=== PATIENT | female | born 1950 | race Caucasian/White ===

== ENCOUNTER 2020-07-19 12:19 | Inpatient (IN) | payer MEDICARE, OTHER ==
[~2020-07-19] VITALS: Ht 157.5 cm; Wt 152.4 kg
[2020-07-19] MEDS ORDERED: ONDANSETRON HCL INJ 2MG/ML 2ML 2 MG/ML VIAL IV ONE (12:59)
[2020-07-19] MEDS ORDERED: MORPHINE SULFATE 2 MG/ML SYR 1ML IV ONE (12:59)
[2020-07-19] MEDS ORDERED: VANCOMYCIN 1GM/NS 250 ML 250 ML IV ONE (13:15)
[2020-07-19] MEDS ORDERED: PIPER-TAZ 3.375 GM 50 ML IV ONE (13:15)
[2020-07-19 13:18] LABS: BASOPHILS # (AUTO) 0.1 (0.0-0.1); BASOPHILS % 0.9 % (0.0-1.0); EOSINOPHILS # (AUTO) 0.3 (0.0-0.4); HEMATOCRIT 36.2 % (34.2-44.1); HEMOGLOBIN 11.6 g/dL (12.0-16.0); LYMPHOCYTES # (AUTO) 1.5 (1.0-3.2); LYMPHOCYTES % 21.3 % (18.0-39.1); MEAN CORPUSCULAR HEMOGLOBIN 32.3 pg (28-32); MEAN CORPUSCULAR VOLUME 100.8 fL (81-99); MONOCYTES # (AUTO) 0.5 (0.2-0.8); MONOCYTES % 7.4 % (4.4-11.3); NEUTROPHILS # (AUTO) 4.7 (2.1-6.9); NEUTROPHILS % 66.3 % (38.7-80.0); PLATELET COUNT 213 x10e3/uL (140-360); RED BLOOD COUNT 3.59 x10e6/uL (3.6-5.1); RED CELL DISTRIBUTION WIDTH 15.4 % (11.7-14.4)
[2020-07-19 13:28] LABS: INR 1.02; PARTIAL THROMBOPLASTIN TIME 26.3 seconds (23.8-35.5); PROTHROMBIN TIME 13.9 seconds (11.9-14.5)
[2020-07-19 13:37] LABS: ALBUMIN 2.8 g/dL (3.5-5.0); ALBUMIN/GLOBULIN RATIO 0.7 (0.8-2.0); ANION GAP 13.3 mmol/L (8-16); CALCIUM 8.9 mg/dL (8.4-10.2); CREATININE, SERUM 1.19 mg/dL (0.57-1.11); POTASSIUM 3.3 mmol/L (3.5-5.1)
[2020-07-19 13:44] LABS: CREATINE KINASE MB 0.5 ng/mL (0-5.0)
[2020-07-19] MEDS ORDERED: MORPHINE SULFATE 2 MG/ML SYR 1ML IV PRN (13:45)
[2020-07-19] MEDS ORDERED: SODIUM CHLORIDE 0.9% 1000ML 1,000 ML IV SCH (13:45)
[2020-07-19] MEDS ORDERED: ONDANSETRON HCL INJ 2MG/ML 2ML 2 MG/ML VIAL IV PRN (13:45)
[2020-07-19] MEDS ORDERED: MORPHINE SULFATE INJ 4 MG/ML INJ 1ML IV PRN (14:00)
--- OUTSIDE RECORDS SUMMARY | 2020-07-19 14:05 | XMS REPORT | Continuity of Care Document ---
Author Author [facility] t Organization [facility] Address [address] [place] [address] Phone Unavailable Care Team Providers Care Traffic Enumerator Name Role Phone Unavailable Unavailable Payers Payer Name Policy Type Policy Number Effective Date Expiration Date S ource Problems This patient has no known problems. Allergies, Adverse Reactions, Alerts Allergy Name Allergy Type Status Severity Reaction(s) Onset Date Inacti ve Date Treating Clinician Comments Source [place]oconut DA Active U 2017-02-26 00:00:00 [facility] Sulfa (Sulfonamide Antibiotics) DA Active U 2017-02-26 00 :00:00 [facility] Medications This patient has no known medications. Procedures Procedure Date / Time Performed Performing Clinician Sourc e [id number] 2020-06-17 00:00:00 ENCPL 0HBRXZZ 2020-06-17 00:00:00 ENCPL 0HBRXZZ 2020-06-13 00:00:00 ENCPL 0HBRXZZ 2020-06-13 00:00:00 ENCPL 0HBRXZZ 2020-06-13 00:00:00 ENCPL 0HBRXZZ 2020-06-13 00:00:00 ENCPL 0HBRXZZ 2020-06-13 00:00:00 ENCPL Results Test Description Test Time Test Comments Results Result Comments Source B-TYPE NATRIURETIC PEPTIDE 2019-04-23 22:35:00 Test Item B-TYPE NATRIURETIC PEPTIDE (test code = BNP) 57.19 pgram/mL 0-100 N BASIC METABOLIC [id number] 22:32:00* Test Item Value Reference Range Interpretation Comments SODIUM (test code = NA) 141 mmol/L 136-145 N POTASSIUM (test code = K) 4.0 mmol/L 3.5-5.1 N CHLORIDE (test code = CL) 108.0 mmol/L 98-107 H CARBON DIOXIDE (test code = CO2) 29.0 mmol/L 21-32 N ANION GAP (test code = GAP) 8.0 10-20 L GLUCOSE (test code = GLU) 100 mg/dL 74-106 N BLOOD UREA NITROGEN (test code = BUN) 19 mg/dL 7-18 H GLOMERULAR FILTRATION RATE (test code = GFR) 55 mL/min >=60 Estimated GFR by using Modified MDRD formula.Chronic kidney disease is defined as either kidney damageor GFR <60 mL/min/1.73 m2 for >3 months. CREATININE (test code = CREAT) 1.00 mg/dL 0.55-1.02 N Note change in reference range due to change in reagent. BUN/CREATININE RATIO (test code = BUN/CREA) 19.0 10-20 N CALCIUM (test code = CA) 8.8 mg/dL 8.5-10.1 N HEPATIC FUNCTION [id number] 22:32:00* Test Item Value Reference Range Interpretation Comments TOTAL PROTEIN (test code = PROT) 7.4 gram/dL 6.4-8.2 N ALBUMIN (test code = ALB) 3.1 g/dL 3.4-5.0 L GLOBULIN (test code = GLOB) 4.3 gram/dL 2.7-4.2 H ALBUMIN/GLOBULIN RATIO (test code = A/G) 0.7 0.75-1.50 L BILIRUBIN TOTAL (test code = BILT) 0.50 mg/dL 0.0-1.0 N BILIRUBIN DIRECT (test code = BILD) 0.14 mg/dL 0.0-0.20 N SGOT/AST (test code = AST) 16 IUnit/L 15-37 N SGPT/ALT (test code = ALT) 17 IUnit/L 12-78 N ALKALINE PHOSPHATASE TOTAL (test code = ALKP) 102 IUnit/L 45-117 N Note change in reference range due to change in reagent. [id number] 22:32:00* Test Item Value Reference Range Interpretation Comments LIPASE (test code = LIP) 124 U/L 73.0-393.0 N [id number] 22:32:00* Test Item Value Reference Range Interpretation Comments TROPONIN-I (test code = TROPI) <0.015 ng/mL 0-0.045 N PROTHROMBIN [id number] 22:08:00* Test Item Value Reference Range Interpretation Comments PROTHROMBIN TIME PATIENT (test code = PTP) 11.8 seconds 9.0-14.0 N INTERNATIONAL NORMAL RATIO (test code = INR) 1.0 0.8-1.2 N The therapeutic range for oral anticoagulant therapy formost indications is an international normalized ratio (INR)of between 2.0 and 3.0. The recommended therapeutic INRrange for various clinical situations is listed below: Clinical Situation INR range Pulmonary e mbolism treatment (2.0-3.0)Venous thrombosis treatmentVenous thrombosis prophylaxis (high risk surgery)Prevention of systemic embolism from: Acute myocardial infarction Valvular heart disease Atrial fibrillation Mechanical prosthetic heart valves (2.5-3.5) IS PATIENT ON ANTICOAGULANTS? NTHROMBOPLASTIN TIME [id number] 22:08:00* Test Item Value Reference Range Interpretation Comments THROMBOPLASTIN TIME PARTIAL (test code = PTT) 31.5 seconds 25.0-36. 5 N IS PATIENT ON ANTICOAGULANTS? NURINALYSIS [id number] 22:04:00* Test Item Value Reference Range Interpretation Comments UA COLOR (test code = COLU) YELLOW YELLOW UA APPEARANCE (test code = APPU) CLEAR CLEAR UA GLUCOSE DIPSTICK (test code = DGLUU) NEGATIVE mg/dL NEGATIVE UA BILIRUBIN DIPSTICK (test code = BILU) NEGATIVE mg/dL NEGATIVE UA KETONE DIPSTICK (test code = KETU) NEGATIVE mg/dL NEGATIVE UA SPECIFIC GRAVITY (test code = SGU) 1.026 1.001-1.035 UA BLOOD DIPSTICK (test code = HEBERT) Negative mg/dL NEGATIVE UA PH DIPSTICK (test code = ALEJANDRA) 6.0 5.0-8.0 UA PROTEIN DIPSTICK (test code = PROU) 30 (1+) mg/dL NEGATIVE A UA UROBILINIOGEN DIPSTICK (test code = URO) Normal mg/dL NEGATIVE UA NITRITE DIPSTICK (test code = CAT) NEGATIVE NEGATIVE UA LEUKOCYTE ESTERASE W REFLEX (test code = LEUUR) 75 Lawrence/uL (1+) Lawrence/uL NEGATIVE A UA WBC (test code = WBCU) 0-5 per HPF 0-5 UA RBC (test code = RBCU) 0-2 #/HPF 0-5 UA EPITHELIAL CELLS (test code = EPIU) FEW per HPF FEW UA BACTERIA (test code = BACU) FEW #/HPF NONE A UA MUCUS (test code = MUCU) FEW #/LPF FEW Urine Source? Clean CatchURINALYSIS [id number] 22:02:00* Test Item Value Reference Range Interpretation Comments UA COLOR (test code = COLU) YELLOW YELLOW UA APPEARANCE (test code = APPU) CLEAR CLEAR UA GLUCOSE DIPSTICK (test code = DGLUU) NEGATIVE mg/dL NEGATIVE UA BILIRUBIN DIPSTICK (test code = BILU) NEGATIVE mg/dL NEGATIVE UA KETONE DIPSTICK (test code = KETU) NEGATIVE mg/dL NEGATIVE UA SPECIFIC GRAVITY (test code = SGU) 1.026 1.001-1.035 UA BLOOD DIPSTICK (test code = HEBERT) Negative mg/dL NEGATIVE UA PH DIPSTICK (test code = ALEJANDRA) 6.0 5.0-8.0 UA PROTEIN DIPSTICK (test code = PROU) 30 (1+) mg/dL NEGATIVE A UA UROBILINIOGEN DIPSTICK (test code = URO) Normal mg/dL NEGATIVE UA NITRITE DIPSTICK (test code = CAT) NEGATIVE NEGATIVE UA LEUKOCYTE ESTERASE W REFLEX (test code = LEUUR) 75 Lawrence/uL (1+) Lawrence/uL NEGATIVE A UA WBC (test code = WBCU) per HPF 0-5 UA RBC (test code = RBCU) per HPF 0-5 UA EPITHELIAL CELLS (test code = EPIU) per HPF Few UA BACTERIA (test code = BACU) per HPF NONE Urine Source? Clean CatchCBC W/O [id number] 21:59:00* Test Item Value Reference Range Interpretation Comments WHITE BLOOD CELL (test code = WBC) 8.0 K/mm3 4.5-12.5 N RED BLOOD CELL (test code = RBC) 3.86 mill/mm3 3.7-5.2 N HEMOGLOBIN (test code = HGB) 12.5 gram/dL 11.5-15.5 N HEMATOCRIT (test code = HCT) 39.1 % 36.0-46.0 N MEAN CELL VOLUME (test code = MCV) 101.3 fL 80-98 H MEAN CELL HGB (test code = MCH) 32.4 picogram 27.0-33.0 N MEAN CELL HGB CONCETRATION (test code = MCHC) 32.0 gram/dL 33.0-36. 0 L RED CELL DISTRIBUTION WIDTH (test code = RDW) 13.9 % 11.6-16. 2 N PLATELET COUNT (test code = PLT) 201 K/mm3 150-450 N MEAN PLATELET VOLUME (test code = MPV) 9.0 fL 6.7-11.0 N - XR CHEST 1 [id number] 21:34:00 FAX: ROHAN FIGUEROA MD [place]: B St: REG Name: CANDY PEDRAZA [facility] : [birth year] 52 Age/S: 68/F [address] [facility] Unit #: [id number] Loc: VLADIMIR Puentes [address] Phys: ROHAN FIGUEROA MD Acct: [id number] Dis Date: Status: REG ER PHONE #: [phone] Exam Date: 04/23/20192107 FAX #: [phone] Reason: ABDOMINAL PAIN EXAMS: CPT CODE: [id number] XR CHEST 1 V [id number] EXAM: Chest x-ray, one view; INFORMATION: Abdominal pain, weakness; FINDINGS: Lungs are clear; no infiltrates, no edema; no effusions, no pneumothorax. The heart is slightly enlarged, similar to a study from February 26, 2017. IMPRESSION: 1. Mild cardiomegaly. 2. No evidence of acute cardiothoracic abnormalities. at 2134 Reported and signed by: Michael Kumar M.D. CC: ROHAN FIGUEROA MD Technologist: NISREEN Mcdowell ate/Time/By: 04/23/2019 (2133) : By: Bryant Orig Print D/T: S: 03/29 (2136) PAGE 1 Signed Repor t
--- NOTE | 2020-07-19 14:10 | Emergency Department Note ---
History of Present Illnes History of Present Illness Chief Complaint: General Medicine Complaints History of Present Illness This is a 69 year old female sent by [facility] via ambulance for RLE cellulitis. Historian: Patient Arrival Mode: [place] Additional Treatment PLASTIC PROCESS TECHNICIAN: N/A Vehicle Check In Clerk Required: No Onset (how long ago): day(s) Location: RLE Quality: REDNESS, SWELLING Radiation: Reports non-radiation Severity: moderate Onset quality: gradual Timing of current episode: constant Chronicity: recurrent Context: Denies recent illness Relieving factors: none Exacerbating factors: none Associated symptoms: Reports denies other symptoms Treatments prior to arrival: none Past Medical/Family History Physician Review I have reviewed the patient's past medical and family history. Any updates have been documented here. Past Medical History Recent Fever: No Clinical Suspicion of Infectio: No New/Unexplained Change in Ment: No Past Medical History: None Other Medical History: MORBID OBESITY Past Surgical History: None Social History Smoking Cessation: Never Smoker Counseling Performed: No Alcohol Use: None Any Illegal Drug Use: No TB Exposure/Symptoms: No Physically hurt or threatened: No Family History Family history of heart diseas: No Other Any Pre-Existing Lines (PICC,: No Review of Systems Review of Systems Constitutional: Reports no symptoms EENTM: Reports no symptoms Cardiovascular: Reports no symptoms Respiratory: Reports no symptoms Gastrointestinal: Reports no symptoms Genitourinary: Reports no symptoms Musculoskeletal: Reports no symptoms Integumentary: Reports as per HPI Neurological: Reports no symptoms Psychological: Reports no symptoms Endocrine: Reports no symptoms Hematological/Lymphatic: Reports no symptoms Physical Exam Related Data Allergies: Coded Allergies: Sulfa (Sulfonamide Antibiotics) (Verified Allergy, Unknown, 07/19/20) coconut (Verified Allergy, Unknown, 07/19/20) Triage Vital Signs Vital Signs Date Time Temp Pulse Resp B/P (MAP) Pulse Ox O2 Delivery O2 Flow Rate FiO2 07/19/20 12:37 98.6 65 18 108/53 100 Room Air Vital signs reviewed: Yes Physical Exam CONSTITUTIONAL Constitutional: Present well-developed, Present morbidly obese HENT HENT: Present normocephalic, Present atraumatic, Present oropharynx clear/moist, Present nose normal HENT L/R: Present left ext ear normal, Present right ext ear normal EYES Eyes: Reports PERRL, Reports conjunctivae normal NECK Neck: Present ROM normal PULMONARY Pulmonary: Present effort normal, Present breath sounds normal CARDIOVASCULAR Cardiovascular: Present regular rhythm, Present heart sounds normal, Present capillary refill normal, Present normal rate GASTROINTESTINAL Abdominal: Present soft, Present nontender, Present bowel sounds normal GENITOURINARY Genitourinary: Present exam deferred SKIN Skin: Present warm, Present dry, Present other (R LOWER LEG WITH INCR WARMTH, ERYTHEMA, TENDERNESS, LEFT MEDIAL LOWER LEG WITH 2 CM ULCERATION) MUSCULOSKELETAL Musculoskeletal: Present ROM normal NEUROLOGICAL Neurological: Present alert, Present oriented x 3, Present no gross motor or sensory deficits PSYCHOLOGICAL Psychological: Present mood/affect normal, Present judgement normal Results Laboratory Result Diagram: 07/19/20 1253 07/19/20 1253 Laboratory Laboratory Tests Test 07/19/20 13:08 07/19/20 12:53 White Blood Count 7.03 x10e3/uL (4.8-10.8) Red Blood Count 3.59 x10e6/uL (3.6-5.1) Hemoglobin 11.6 g/dL (12.0-16.0) Hematocrit 36.2 % (34.2-44.1) Mean Corpuscular Volume 100.8 fL (81-99) Mean Corpuscular Hemoglobin 32.3 pg (28-32) Mean Corpuscular Hemoglobin Concent 32.0 g/dL (31-35) Red Cell Distribution Width 15.4 % (11.7-14.4) Platelet Count 213 x10e3/uL (140-360) Neutrophils (%) (Auto) 66.3 % (38.7-80.0) Lymphocytes (%) (Auto) 21.3 % (18.0-39.1) Monocytes (%) (Auto) 7.4 % (4.4-11.3) Eosinophils (%) (Auto) 4.0 % (0.0-6.0) Basophils (%) (Auto) 0.9 % (0.0-1.0) Neutrophils # (Auto) 4.7 (2.1-6.9) Lymphocytes # (Auto) 1.5 (1.0-3.2) Monocytes # (Auto) 0.5 (0.2-0.8) Eosinophils # (Auto) 0.3 (0.0-0.4) Basophils # (Auto) 0.1 (0.0-0.1) Absolute Immature Granulocyte (auto 0.01 x10e3/uL (0-0.1) Prothrombin Time 13.9 seconds (11.9-14.5) Prothromb Time International Ratio 1.02 Activated Partial Thromboplast Time 26.3 seconds (23.8-35.5) Sodium Level 144 mmol/L (136-145) Potassium Level 3.3 mmol/L (3.5-5.1) Chloride Level 105 mmol/L (98-107) Carbon Dioxide Level 29 mmol/L (22-29) Anion Gap 13.3 mmol/L (8-16) Blood Urea Nitrogen 25 mg/dL (7-26) Creatinine 1.19 mg/dL (0.57-1.11) Estimat Glomerular Filtration Rate 45 ML/MIN (60-) BUN/Creatinine Ratio 21 (6-25) Glucose Level 103 mg/dL (74-118) Calcium Level 8.9 mg/dL (8.4-10.2) Total Bilirubin 0.6 mg/dL (0.2-1.2) Aspartate Amino Transf (AST/SGOT) 17 IU/L (5-34) Alanine Aminotransferase (ALT/SGPT) 11 IU/L (0-55) Alkaline Phosphatase 65 IU/L (40-150) Creatine Kinase 20 IU/L (29-168) Creatine Kinase MB 0.50 ng/mL (0-5.0) Troponin I 0.008 ng/mL (0-0.300) B-Type Natriuretic Peptide 40.1 pg/mL (0-100) Total Protein 6.7 g/dL (6.5-8.1) Albumin 2.8 g/dL (3.5-5.0) Globulin 3.9 g/dL (2.3-3.5) Albumin/Globulin Ratio 0.7 (0.8-2.0) Lab results reviewed: Yes Assessment & Plan Medical Decision Making MDM CBC, CHEM, BLOOD CX'S EVAL CELLULITIS, ELECTROLYTE ABNL, RENAL INSUFF Reassessment Reassessment D/W DR GÓMEZ - ADMIT IV ABX'S Assessment & Plan Final Impression: (1) Cellulitis of lower extremity Depart Disposition: ADMITTED Last Vital Signs Date Time Temp Pulse Resp B/P (MAP) Pulse Ox O2 Delivery O2 Flow Rate FiO2 07/19/20 13:40 60 18 108/55 99 Room Air 07/19/20 12:37 98.6 Medications in the ED Morphine Sulfate 2 mg ONCE ONCE IV ; Start 07/19/20 at 12:59; Stop 07/19/20 at 13:00 Ondansetron HCl 4 mg ONCE ONCE IV ; Start 07/19/20 at 12:59; Stop 07/19/20 at 13:00 Vancomycin HCl 250 ml @ 200 mls/hr NOW ONCE IV Last administered on 07/19/20at 13:40; Admin Dose 200 MLS/HR; Start 07/19/20 at 13:15; Stop 07/19/20 at 14:29 Piperacillin Sod/ Tazobactam Sod 50 ml @ 50 mls/hr NOW ONCE IV Last admi nistered on 07/19/20at 13:29; Admin Dose 50 MLS/HR; Start 07/19/20 at 13:15; Stop 07/19/20 at 14:14 Ondansetron HCl 4 mg Q4H PRN IV NAUSEA AND VOMITING; Start 07/19/20 at 13:45; Stop 08/18/20 at 13:44 Sodium Chloride 1,000 ml @ 75 mls/hr [id number] IV ; Start 07/19/20 at 13:45; Stop 07/20/20 at 03:04 Morphine Sulfate 4 mg Q4H PRN IV SEVERE PAIN (7-10); Start 07/19/20 at 13:45; Stop 07/26/20 at 13:44; Status UNV Morphine Sulfate 4 mg Q4H PRN IV SEVERE PAIN (7-10); Start 07/19/20 at 14:00; Stop 07/26/20 at 13:59 CHRISTEN COONEY MD Jul 19, 2020 14:10
[2020-07-19 14:30] VITALS: BP 126/56
[2020-07-19] MEDS ORDERED: LORAZEPAM INJ 2 MG/ML VIAL IV ONE (15:00)
--- NOTE | 2020-07-19 15:20 | NUR ---
received pt from er. pt placed to bed . full assessment done
[2020-07-19 16:30] VITALS: BP 126/56
--- NOTE | 2020-07-19 17:45 | NUR ---
pt resting in bed
[2020-07-19] MEDS: PIPER-TAZ 3.375 GM 50 ML IV SCH ×2 (18:05→23:36)
[2020-07-19 20:00] VITALS: BP 93/53
[2020-07-19 20:55] VITALS: BP 93/53
[2020-07-20] VITALS (10 sets, daily range): BP systolic 90–121; BP diastolic 40–72
[2020-07-20] MEDS: PIPER-TAZ 3.375 GM 50 ML IV SCH ×4 (05:01→23:41)
--- NOTE | 2020-07-20 07:00 | NUR ---
SBAR BEDSIDE REPORT RECEIVED FROM YANNICK PICKETT. PT IS ABLE TO MAKE NEEDS KNOWN. PT WAS RECEIVED LAYING IN BED IN NO ACUTE DISTRESS. PT WAS EDUCATED ON FALL RISK PRECAUTIONS. PT VERBALIZED UNDERSTANDING. CALL LIGHT AND BELONGINGS PLACED NEARBY. WILL CONTINUE TO MONITOR.
--- NOTE | 2020-07-20 07:34 | NUR ---
REPORT GIVEN TO DAYSHIFT NURSE. ALERT AND RESTING IN BED. NO SIGNS IV INFILTRATION. BED LOCKED AND IN LOW POSITION. CALL LIGHT WITHIN REACH. BED ALARM ACTIVATED.
[2020-07-20 07:41] LABS: BASOPHILS # (AUTO) 0.1 (0.0-0.1); BASOPHILS % 0.9 % (0.0-1.0); EOSINOPHILS # (AUTO) 0.3 (0.0-0.4); EOSINOPHILS % 4.1 % (0.0-6.0); HEMATOCRIT 34.6 % (34.2-44.1); HEMOGLOBIN 10.8 g/dL (12.0-16.0); LYMPHOCYTES # (AUTO) 1.2 (1.0-3.2); LYMPHOCYTES % 16.8 % (18.0-39.1); MEAN CORPUSCULAR HEMOGLOBIN 32.1 pg (28-32); MEAN CORPUSCULAR HGB CONC 31.2 g/dL (31-35); MONOCYTES # (AUTO) 0.5 (0.2-0.8); MONOCYTES % 7.3 % (4.4-11.3); NEUTROPHILS % 70.5 % (38.7-80.0); PLATELET COUNT 207 x10e3/uL (140-360); RED BLOOD COUNT 3.36 x10e6/uL (3.6-5.1); RED CELL DISTRIBUTION WIDTH 15.5 % (11.7-14.4)
[2020-07-20 07:43] LABS: ALBUMIN 2.5 g/dL (3.5-5.0); ALBUMIN/GLOBULIN RATIO 0.7 (0.8-2.0); ANION GAP 12.6 mmol/L (8-16); CALCIUM 8.2 mg/dL (8.4-10.2); CREATININE, SERUM 1.29 mg/dL (0.57-1.11); POTASSIUM 3.6 mmol/L (3.5-5.1)
[2020-07-20] MEDS: ENOXAPARIN SOD INJ 40 MG/0.4 ML SYR SC SCH ×2 (09:18→22:12)
--- NOTE | 2020-07-20 09:56 | History and Physical ---
HISTORY OF PRESENT ILLNESS: A 69-year-old female, who comes in with cellulitis of the lower extremities. This is Ms. Arlene Cornell, who was admitted to the hospital about a month ago to [facility] with history of falls, was kept in the hospital for about a weeks' time. Reason still unknown. However, the patient was discharged about a week later to [facility]. The patient was in the rehabilitation unit for about a week or two, and then the patient was discharged home with [facility] for home health. The patient was discovered yesterday to have increased erythema, increased redness, and tenderness of the lower extremities bilaterally, right worse than left. The patient was then transferred to the hospital, where the patient is admitted for cellulitis of the lower extremities. PAST MEDICAL HISTORY: Poor historian, but history of lymphedema, questionable history of hypertension, questionable history of renal disease and also history of arthritis in the bilateral knees and also history of chronic cellulitis of the lower extremity. SOCIAL HISTORY: No EtOH. No IV drug abuse. No history of smoking either. ALLERGIES: THE PATIENT IS ALLERGIC TO SULFA AND COCONUT. PAST SURGICAL HISTORY: History of pilonidal cyst removed in 1969. FAMILY HISTORY: Noncontributory. REVIEW OF SYSTEMS: Negative for chest pain. Some shortness of breath on exertion especially with the weight. No chest pain. No nausea, vomiting, or diarrhea. No constipation. No rectal bleeding. No hematochezia. No hematemesis. Positive for tenderness in bilateral lower extremity. Positive for tenderness in the knees too on ambulation. The patient has no infectious disease contact either. PHYSICAL EXAMINATION: VITAL SIGNS: Temperature is 97.5, has been afebrile since admission. Pulse of 83, respirations of 16, blood pressure is 121/61, pulse oximetry of 100%. HEENT: Normocephalic, atraumatic. Pupils are reactive. Has dry mucosa in the mouth. GENERAL: The patient is morbidly obese. CVS: S1 and S2 distant. Regular rate and rhythm. LUNGS: Decreased air entry. ABDOMEN: Protuberant, soft, nontender. EXTREMITIES: Bilateral knees with inflammation. Right lower extremity with increased redness, increased erythema, some excoriations present, left with the same increased redness, erythema positive for a blister, which is popped in the left ankle and heel area. Otherwise, positive for lymphedema, pitting and also doughy edema. LABORATORY VALUES: White count is 7.03, hemoglobin of 11.6, hematocrit of 36.2, RDW of 15.4. Chemistries show a sodium 144, potassium of 3.3, BUN of 25 and creatinine of 1.9 with EGFR of 45, creatine kinase of 20. Serology: Coronavirus is pending. Coags are normal. No radiological studies were done. ASSESSMENT AND PLAN: Ms. Arlene Cornell with: 1. Cellulitis of bilateral lower extremity. The patient is currently on piperacillin-tazobactam. The patient needs sodium chloride for acute renal failure, also one dose of vancomycin was given. Continue with morphine as needed for pain control, but if the blood pressure is dropping, please assess and re-evaluate. 2. Bilateral lower extremity edema. We will go ahead and do a Doppler of bilateral lower extremities. Give her some deep vein thrombosis prophylaxis with 40 mg of Lovenox twice a day. Further recommendation per clinical course. The patient will be handed over to Dr. Hardy tomorrow. Further recommendation per clinical course. Monitor the patient's vitals daily routine and we will check her electrolytes in the morning and a creatinine function in the morning too. MD PRANAY Oakley/JÚNIORL /[id number]
[2020-07-20] MEDS ORDERED: SODIUM CHLORIDE 0.9% 1000ML 1,000 ML IV SCH (15:30)
[2020-07-20] MEDS: SODIUM CHLORIDE 0.9% 1000ML 1,000 ML IV SCH ×2 (16:00→23:43)
[2020-07-21] VITALS (9 sets, daily range): BP systolic 97–165; BP diastolic 54–85
[2020-07-21] MEDS: PIPER-TAZ 3.375 GM 50 ML IV SCH ×3 (06:32→18:10)
[2020-07-21 07:02] LABS: BASOPHILS # (AUTO) 0.1 (0.0-0.1); EOSINOPHILS # (AUTO) 0.2 (0.0-0.4); HEMOGLOBIN 10.4 g/dL (12.0-16.0); LYMPHOCYTES % 29.7 % (18.0-39.1); MEAN CORPUSCULAR HEMOGLOBIN 32.3 pg (28-32); MEAN CORPUSCULAR HGB CONC 31.5 g/dL (31-35); MEAN CORPUSCULAR VOLUME 102.5 fL (81-99); MONOCYTES # (AUTO) 0.5 (0.2-0.8); NEUTROPHILS # (AUTO) 3.9 (2.1-6.9); PLATELET COUNT 199 x10e3/uL (140-360); RED BLOOD COUNT 3.22 x10e6/uL (3.6-5.1); RED CELL DISTRIBUTION WIDTH 15.1 % (11.7-14.4)
[2020-07-21 07:33] LABS: ANION GAP 10.5 mmol/L (8-16); CALCIUM 7.7 mg/dL (8.4-10.2); CREATININE, SERUM 1.18 mg/dL (0.57-1.11); MAGNESIUM 1.8 MG/DL (1.3-2.1); POTASSIUM 3.5 mmol/L (3.5-5.1)
[2020-07-21] MEDS: ENOXAPARIN SOD INJ 40 MG/0.4 ML SYR SC SCH ×2 (09:00→21:00)
[2020-07-21] MEDS: SODIUM CHLORIDE 0.9% 1000ML 1,000 ML IV SCH ×2 (10:13→16:48)
--- NOTE | 2020-07-21 16:47 | NUR ---
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 Ht: 62 in Wt:300 lb BMI: 54.9 kg/m2 IBW: [address] Assessment: (07/21/20) Chart reviewed. Labs and meds reviewed. Pt is a 69 year old female admitted with cellulitis of lower extremity. It is noted that pt is a poor historian. There are no reports of decreased appetite or recent unintentional weight loss per chart. It is recorded that pt consumed 100% of breakfast and lunch today. [facility] Current Diet: cardiac Malnutrition Evaluation (07/21/20) The patient does not meet criteria for a specified degree of malnutrition at this time. Will re-evaluate at follow-up as appropriate. Diet Education Needs Assessment: RD is available for diet education as needed Nutrition Care Level: Signed: Anu Silva, ABBI, LD
--- NOTE | 2020-07-21 19:10 | NUR ---
Bedside rounds completed with morning shift nurse. Pt alert and oriented to name, lying in bed HOB 75 degrees. Denies pain at this time. Call light within reach.
[2020-07-22] VITALS (9 sets, daily range): BP systolic 102–130; BP diastolic 53–70
[2020-07-22] MEDS: PIPER-TAZ 3.375 GM 50 ML IV SCH ×4 (01:31→18:09)
[2020-07-22] MEDS: SODIUM CHLORIDE 0.9% 1000ML 1,000 ML IV SCH ×3 (06:16→18:09)
--- NOTE | 2020-07-22 06:48 | NUR ---
BEDSIDE SBAR REPORT RECEIVED FROM PIYUSH COLMENARES PM SHIFT. PT RECEIVED LYING IN BED HOB UP 30 DEGREES IN NO ACUTE DISTRESS. PT IS ABLE TO MAKE NEEDS KNOWN AND WAS EDUCATED ON FALL RISK PRECAUTIONS. PT VERBALIZED UNDERSTANDING. CALL LIGHT AND BELONGINGS PLACED NEARBY. WILL CONTINUE TO MONITOR.
[2020-07-22] MEDS: ENOXAPARIN SOD INJ 40 MG/0.4 ML SYR SC SCH ×2 (08:42→21:13)
[2020-07-23] VITALS (7 sets, daily range): BP systolic 98–118; BP diastolic 41–61
[2020-07-23] MEDS: SODIUM CHLORIDE 0.9% 1000ML 1,000 ML IV SCH (00:47)
[2020-07-23] MEDS: PIPER-TAZ 3.375 GM 50 ML IV SCH ×4 (00:47→17:43)
[2020-07-23] MEDS: VANCOMYCIN 1GM/NS 250 ML 250 ML IV SCH ×2 (05:15→17:00)
--- NOTE | 2020-07-23 06:45 | NUR ---
BEDSIDE SBAR REPORT RECEIVED FROM RAN PICKETT, PM SHIFT. PT RECEIVED RESTING IN BED IN NO ACUTE DISTRESS. HOB ELEVATED 30 DEGREES. PT IS ABLE TO MAKE NEEDS KNOWN AND STATES NO NEEDS. CALL LIGHT AND BELONGINGS PLACED NEARBY. PT EDUCATED ON FALL RISK PRECAUTIONS. PT VERBALIZED UNDERSTANDING. WILL CONTINUE TO MONITOR.
[2020-07-23] MEDS: ENOXAPARIN SOD INJ 40 MG/0.4 ML SYR SC SCH ×2 (08:36→20:53)
[2020-07-24] VITALS (8 sets, daily range): BP systolic 105–134; BP diastolic 54–80
[2020-07-24] MEDS: PIPER-TAZ 3.375 GM 50 ML IV SCH ×4 (00:12→18:27)
[2020-07-24] MEDS: VANCOMYCIN 1GM/NS 250 ML 250 ML IV SCH ×2 (05:18→16:50)
--- NOTE | 2020-07-24 07:00 | NUR ---
received bedside report. pt is resting in bed, no s/s of distress noted. call light within reach and bed safety in place
[2020-07-24] MEDS: ENOXAPARIN SOD INJ 40 MG/0.4 ML SYR SC SCH ×2 (08:05→20:18)
--- NOTE | 2020-07-24 20:19 | NUR ---
Repositioned pt on left side using wedge at 1930. Pt has now requested to be removed from the wedge because it is uncomfortable. Offered to assist pt to move on right side. Pt refused and would only like to lie on back. Redness noted to back and sacrum. Educated pt on the importance of alternating positions at least every 2 hours to prevent pressure ulcers. Pt verbalized understanding, but still wishes to remain in supine position. Will continue to monitor.
[2020-07-25] VITALS (8 sets, daily range): BP systolic 96–135; BP diastolic 50–68
[2020-07-25] MEDS: PIPER-TAZ 3.375 GM 50 ML IV SCH ×4 (00:28→17:12)
--- NOTE | 2020-07-25 06:26 | NUR ---
PT'S VANC TROUGH 15. DR. MARTIN INFORMED. ORDERED TO CONTINUE VANCOMYCIN ORDERED.
[2020-07-25] MEDS: VANCOMYCIN 1GM/NS 250 ML 250 ML IV SCH ×2 (06:34→17:41)
--- NOTE | 2020-07-25 07:25 | NUR ---
PATIENT IN BED RESTING WITH NO S/S OF DISTRESS. LOWER EXTREMITIES WITH JAMAAL WRAP. BED IN LOWER POSITION, CALL LIGHT AT REACH.
[2020-07-25] MEDS: ENOXAPARIN SOD INJ 40 MG/0.4 ML SYR SC SCH ×2 (09:12→22:00)
--- NOTE | 2020-07-25 11:17 | NUR ---
PATIENT ASSISTED WITH DIAPER CHANGE, HAD A SMALL BM. REPOSITIONED IN BED BY 2 STAFFS. CALL LIGHT AT REACH.
[2020-07-25] MEDS ORDERED: SODIUM CHLORIDE 0.9% 250ML 250 ML ONE (13:08)
--- NOTE | 2020-07-25 21:46 | NUR ---
Resumed care of patient. Patient resting quietly in bed, respirations even and unlabored, no s/s of distress at this time. Bed locked and in lowest position, side rails upx3, alarm on, call light placed within reach. All safety measures in place.
--- NOTE | 2020-07-25 22:37 | NUR ---
IV to right upper arm noted to be leaking. DC'd with catheter tip intact, sterile gauze applied to site. New 20G IV started to left wrist. See EMR for details.
[2020-07-26] VITALS (8 sets, daily range): BP systolic 103–139; BP diastolic 53–66
[2020-07-26] MEDS: PIPER-TAZ 3.375 GM 50 ML IV SCH ×5 (00:29→23:13)
[2020-07-26] MEDS: VANCOMYCIN 1GM/NS 250 ML 250 ML IV SCH ×2 (05:03→17:34)
--- NOTE | 2020-07-26 05:45 | NUR ---
Dr. Hardy here to see patient. made aware that patient has not gotten out of bed since admission. Received orders for PT eval.
--- NOTE | 2020-07-26 07:15 | NUR ---
PATIENT IN BED RESTING WITH NO S/S OF DISCOMFORT. JAMAAL WRAP DRY AND INTACT TO LOWER EXTREMITIES. PATIENT ON SPECIALTY BED. BED IN LOWER POSITION AND LOCKED. CALL LIGHT AT REACH.
[2020-07-26] MEDS: ENOXAPARIN SOD INJ 40 MG/0.4 ML SYR SC SCH ×2 (09:03→21:09)
--- NOTE | 2020-07-26 11:45 | NUR ---
PATIENT REQUESTED AND RECEIVED A CUP OF ICE WATER. ASSISTED WITH DIAPER CHANGE. IN BED WITH CALL LIGHT AT REACH.
--- NOTE | 2020-07-26 15:56 | NUR ---
PATIENT EXERCISED IN THE ROOM WITH PHYSICAL THERAPY. BACK IN BED WITH CALL LIGHT AT REACH.
--- NOTE | 2020-07-26 19:00 | NUR ---
RECEIVED PATIENT IN BEDSIDE SHIFT REPORT. PATIENT RESTING IN BED AT THIS TIME. NO PAIN REPORTED. NO S&S OF DISTRESS NOTED. BED LOCKED IN LOWEST POSITION, SIDE RIALS UPX2, CALL LIGHT IN REACH.
[2020-07-26] MEDS: ACETAMINOPHEN 325 MG TAB PO PRN (23:20)
[2020-07-27] VITALS (9 sets, daily range): BP systolic 109–134; BP diastolic 54–69
--- NOTE | 2020-07-27 | NUR ---
PATIENT REFUSING TURNS TO SIDES, STATES SHE WANTS TO STAY ON HER BACK. EDUCATED ABOUT IMPORTANCE OF TURNING TO PREVENT SKIN BREAKDOWN, PATIENT STILL STATES SHE WOULD LIKE TO STAY ON HER BACK, TURNING HURTS TOO MUCH.
--- NOTE | 2020-07-27 04:40 | NUR ---
ATTEMPTED TO DRAW BLOOD FOR AM LABS, INCLUDING VANC TROUGH, UNABLE TO OBTAIN. WILL INFORM LAB.
[2020-07-27] MEDS: PIPER-TAZ 3.375 GM 50 ML IV SCH ×4 (05:42→23:30)
[2020-07-27 06:18] LABS: BASOPHILS # (AUTO) 0.1 (0.0-0.1); BASOPHILS % 0.7 % (0.0-1.0); EOSINOPHILS # (AUTO) 0.3 (0.0-0.4); EOSINOPHILS % 3.1 % (0.0-6.0); HEMATOCRIT 34.1 % (34.2-44.1); HEMOGLOBIN 10.7 g/dL (12.0-16.0); LYMPHOCYTES # (AUTO) 1.8 (1.0-3.2); MEAN CORPUSCULAR HEMOGLOBIN 31.6 pg (28-32); MEAN CORPUSCULAR HGB CONC 31.4 g/dL (31-35); MEAN CORPUSCULAR VOLUME 100.6 fL (81-99); MONOCYTES # (AUTO) 0.7 (0.2-0.8); MONOCYTES % 8.5 % (4.4-11.3); NEUTROPHILS # (AUTO) 5.5 (2.1-6.9); NEUTROPHILS % 66.3 % (38.7-80.0); PLATELET COUNT 243 x10e3/uL (140-360); RED BLOOD COUNT 3.39 x10e6/uL (3.6-5.1); RED CELL DISTRIBUTION WIDTH 15.5 % (11.7-14.4)
--- NOTE | 2020-07-27 06:43 | NUR ---
VANC TROUGH 18.7. PER MD MARTIN, GIVE VANC.
[2020-07-27] MEDS: VANCOMYCIN 1GM/NS 250 ML 250 ML IV SCH ×2 (06:58→16:04)
[2020-07-27 07:17] LABS: ALANINE AMINOTRANSFERASE 22 IU/L (0-55); ALBUMIN 2.1 g/dL (3.5-5.0); ALBUMIN/GLOBULIN RATIO 0.6 (0.8-2.0); ALKALINE PHOSPHATASE 106 IU/L (40-150); ANION GAP 13.4 mmol/L (8-16); BLOOD UREA NITROGEN 14 mg/dL (7-26); BUN/CREATININE RATIO 16 (6-25); CARBON DIOXIDE 24 mmol/L (22-29); CHLORIDE 107 mmol/L (98-107); CREATININE, SERUM 0.88 mg/dL (0.57-1.11); EST GLOMERULAR FILTRATION RATE > 60 ML/MIN (60-); GLUCOSE 86 mg/dL (74-118); MAGNESIUM 1.7 MG/DL (1.3-2.1); POTASSIUM 3.4 mmol/L (3.5-5.1); SODIUM 141 mmol/L (136-145)
--- NOTE | 2020-07-27 19:05 | NUR ---
RECEIVED BEDSIDE SHIFT REPORT FROM MORNING NURSE. PT ALERT AND ORIENTED, LYING IN BED HOB 45 DEGREES. PT DENIES PAIN AT THIS TIME. INFORMED TO CALL IF SHE NEEDS NEEDS ASSISTANCE, CALL LIGHT WITHIN REACH. BED LOW AND LOCKED. PT'S GOAL IS TO REST.
[2020-07-27] MEDS: ACETAMINOPHEN 325 MG TAB PO PRN (23:30)
[2020-07-28] MEDS: VANCOMYCIN 1GM/NS 250 ML 250 ML IV SCH ×2 (05:00→17:00)
[2020-07-28 05:17] VITALS: BP 122/59
[2020-07-28] MEDS ORDERED: POTASSIUM CHLORIDE 20 MEQ TAB CR PO STA (05:28)
--- NOTE | 2020-07-28 07:20 | NUR ---
PATIENT IN STABLE CONDITION WITH NO S/S OF RESPIRATORY DISTRESS. NO PAIN VOICED. JAMAAL BANDAGE NOTED TO BILATERAL LOWER EXTREMITIES. PUREWICK APPLIED WELL DIAPER. CALL LIGHT IS WITHIN REACH, PATIENT INSTRUCTED TO CALL FOR ASSISTANCE NEEDED.
[2020-07-28 08:58] VITALS: BP 107/61
[2020-07-28 09:08] VITALS: BP 107/61
[2020-07-28] MEDS: PIPER-TAZ 3.375 GM 50 ML IV SCH ×2 (11:32→17:17)
[2020-07-28 12:34] VITALS: BP 165/92
--- NOTE | 2020-07-28 13:14 | NUR ---
INQUIRED WITH DR. MARTIN FOR SNF ORDER FOR PATIENT PER PT- DR. MARTIN WILL SPEAK WITH THE PATIENT. NO NEW ORDERS.
--- NOTE | 2020-07-28 15:49 | NUR ---
Nutrition Screen Note RD Recommendation for Physician: -Continue current diet as ordered Plan of Care: RD following, monitoring for tolerance and adequacy Nutrition reason for involvement: follow up Primary Diagnose(s):cellulitis of lower extremity PMH: Poor historian, but history of lymphedema, questionable history of hypertension, questionable history of renal disease and also history of arthritis in the bilateral knees and also history of chronic cellulitis of the lower extremity. Ht: 62 in Wt:300 lb BMI: 54.9 kg/m2 IBW: [address] Assessment: 07/28: Follow up. Pt on Regular diet with avg 75% meal intake. No GI distress, LBM 07/27. Pt continues with cellulitis, documented unstagable wound to R foot per integumentary assessment. Labs and meds reviewed. Chart reviewed. Will continue to monitor. (07/21/20) Chart reviewed. Labs and meds reviewed. Pt is a 69 year old female admitted with cellulitis of lower extremity. It is noted that pt is a poor historian. There are no reports of decreased appetite or recent unintentional weight loss per chart. It is recorded that pt consumed 100% of breakfast and lunch today. Will continue to montor. Current Diet: Regular Malnutrition Evaluation (07/21/20) The patient does not meet criteria for a specified degree of malnutrition at this time. Will re-evaluate at follow-up as appropriate. Diet Education Needs Assessment: RD is available for diet education as needed Nutrition Care Level: Signed: Gabby Miguel RD, LD, [facility]
--- NOTE | 2020-07-28 15:59 | NUR ---
WOUND CARE CONSULT FOR 69 YO MALE HX OF CELLULITIS OF LOWER EXTREMITIES NIMA 14 0N MODERATE PUP STATUS AND INTERVENTIONS AND ALTERNATING PRESSURE MATTRESS LABS: WBC-8.32 HGB-10.7 GLUCOSE-86 SKIN ASSESSMENT COMPLETE PATIENT PRESENTS WITH RIGHT MEDIAL FOOT PARTIAL THICKNESS ULCERATION 2CM X2CM X0.2CM LEFT POSTERIOR THIGH 4CM X4CM NEWLY CLOSED ULCERATION RECOMMENDATIONS: NURSING TO CONTINUE TO MAINTAIN MODERATE PUP STATUS AND INTERVENTIONS AND ALTERNATING PRESSURE MATTRESS NURSING TO CONTINUE TO ASSIST PATIENT OUT OF BED FOR MEALS AND MUCH TOLERATED NURSING TO CONTINUE TO ASSIST PATIENT NEEDED WITH MEALS AND NUTRITIONAL SUPPLEMENTS TO ENSURE PROPER REQUIREMENTS FOR HEALING NURSING TO CONTINUE TO OFFLOAD FEET AND HEELS NEEDED WITH PILLOW SUSPENSION WHEN IN BED NURSING TO CLEAN RIGHT MEDIAL FOOT PARTIAL THICKNESS ULCERATION , LEFT POSTERIOR THIGH NEWLY CLOSED ULCERATION WITH NORMAL SALINE DAILY AND APPLY VENELEX OINTMENT AND ALLEVYN FOAM DRESSING Addendum: 07/28/20 at 1605 by Ciro Marin RN Amended: Links added.
[2020-07-28 16:22] VITALS: BP 134/64
--- NOTE | 2020-07-28 18:04 | NUR ---
PATIENT HAS A VANCO TROUGH OF 20.9 - DR. MARTIN NOTIFIED. ORDER RECEIVED TO HOLD DOSE.
--- NOTE | 2020-07-28 19:15 | NUR ---
PATIENT IN STABLE CONDITION WITH NO S/S OF RESPIRATORY DISTRESS-NO PAIN VOICED. PUREWICK APPLIED. CALL LIGHT IS WITHIN REACH OF PATIENT- PATIENT INSTRUCTED TO CALL FOR ASSISTANCE NEEDED. BEDSIDE SHIFT REPORT GIVEN TO ONCOMING NURSE.
--- NOTE | 2020-07-28 19:30 | NUR ---
Received change of shift report from AM nurse. Walking rounds completed.
[2020-07-28 20:00] VITALS: BP 131/66
[2020-07-29] VITALS (7 sets, daily range): BP systolic 114–140; BP diastolic 59–73
[2020-07-29] MEDS: PIPER-TAZ 3.375 GM 50 ML IV SCH ×5 (04:52→23:26)
[2020-07-29] MEDS: VANCOMYCIN 1GM/NS 250 ML 250 ML IV SCH ×2 (04:53→18:20)
--- NOTE | 2020-07-29 05:52 | NUR ---
IV leaking to left wrist. Restarted IV to right FA 20G. Patient tolerated well.
--- NOTE | 2020-07-29 07:20 | NUR ---
PATIENT IS IN STABLE CONDITION WITH NO S/S OF RESPIRATORY DISTRESS. PATIENT DENIES PAIN. PUREWICK APPLIED. DRESSING APPLIED TO BILATERAL LOWER EXTREMITIES. CALL LIGHT IS WITHIN REACH, PATIENT INSTRUCTED TO CALL FOR ASSISTANCE NEEDED.
[2020-07-29] MEDS: BALSAM PERU/CASTOR OIL 60 GM OINT...G. TP SCH (08:35)
--- NOTE | 2020-07-29 14:40 | NUR ---
CALL TO DR. MARTIN REGARDING DC PLAN. INFORMED OF PT RECOMMENDATION FOR SNF. REQUESTED ORDER. STATES HE NEEDED TO SPEAK W THE PT AGAIN. STATES SHE HAD SAID NO YESTERDAY. WILL CONT TO FOLLOW.
[2020-07-29] MEDS ORDERED: PIPER-TAZ 3.375 GM 50 ML IV SCH (15:00)
--- NOTE | 2020-07-29 18:06 | NUR ---
CONTACTED DR. MARTIN REGARDING CRITICAL VANCO TROUGH OF 16.3- DR. MARTIN ORDERED TO ADMINISTER VANCOMYCIN
--- NOTE | 2020-07-29 18:39 | NUR ---
DR. MARTIN INFORMED THE PATIENT HAS RECONSIDERED REHAB AND WANTS TO BE TRANSFERRED TO REHAB FROM [facility]- NO NEW ORDERS RECEIVED.
--- NOTE | 2020-07-29 19:09 | NUR ---
PATIENT IN STABLE CONDITION WITH NO S/S OF RESPIRATORY DISTRESS. NO PAIN VOICED. IV ANTIBIOTIC INFUSING. PUREWICK AND DIAPER APPLIED. DRESSING TO BILATERAL LOWER EXTREMITIES APPLIED. CALL LIGHT IS WITHIN REACH, PATIENT INSTRUCTED TO CALL FOR ASSISTANCE NEEDED. BEDSIDE REPORT GIVEN TO ONCOMING NURSE
--- NOTE | 2020-07-29 19:11 | NUR ---
Received change of shift report from AM nurse. Walking rounds completed.
[2020-07-30] VITALS (10 sets, daily range): BP systolic 111–155; BP diastolic 51–72
--- NOTE | 2020-07-30 00:58 | NUR ---
Patient in bed. Repositioned. C/O pain to IV will moving in bed. Assessed IV no swelling or redness noted. Placed arm on pillow. Patient states she was comfortable. Continue monitor for changes in patients condition.
[2020-07-30] MEDS: VANCOMYCIN 1GM/NS 250 ML 250 ML IV SCH ×2 (05:00→16:43)
[2020-07-30] MEDS: PIPER-TAZ 3.375 GM 50 ML IV SCH ×3 (06:00→17:09)
--- NOTE | 2020-07-30 07:00 | NUR ---
BEDSIDE SHIFT REPORT RECEIVED FROM THE ENGINE LATHE OPERATOR RN. EDUCATED PT ABOUT FALL PRECAUTIONS. PT VERBALIZED UNDERSTANDING. CALL LIGHT WITH IN EASY REACH. BED IS LOW AND LOCKED. SIDE RAILS X2. BED ALARM IS ON. ALL SAFETY MEASURES IN PLACE. PT DENIES NEEDS AT THIS TIME.
[2020-07-30] MEDS: BALSAM PERU/CASTOR OIL 60 GM OINT...G. TP SCH (10:00)
--- NOTE | 2020-07-30 16:00 | NUR ---
PAGED NADER OCONNELL REGARDING NEW CONSULT. LEFT MESSAGE.
--- NOTE | 2020-07-30 16:46 | NUR ---
PAGEJeremias MARTIN AND REPORTED VANC GRAY 18.2. HOLD VANCOMYCIN AND RESTART TOMORROW 07/31/20 AT 1700 VANCOMYCIN 1GM Q 24 HRS.
--- NOTE | 2020-07-30 19:15 | NUR ---
RECEIVED BEDSIDE SHIFT REPORT FROM PREVIOUS NURSE. CALL LIGHT WITHIN REACH. PATIENT IN BED.
--- NOTE | 2020-07-30 19:23 | NUR ---
BEDSIDE SHIFT REPORT GIVEN TO THE CLERK ANALYST RN. PT DENIED FURTHER NEEDS.
[2020-07-31] VITALS (9 sets, daily range): BP systolic 115–133; BP diastolic 63–89
[2020-07-31] MEDS: PIPER-TAZ 3.375 GM 50 ML IV SCH ×5 (00:04→23:45)
--- NOTE | 2020-07-31 07:00 | NUR ---
BEDSIDE SHIFT REPORT RECEIVED FROM THE OFFICE ADMIN RN. EDUCATED PT ABOUT FALL PRECAUTIONS. PT VERBALIZED UNDERSTANDING. CALL LIGHT WITH IN EASY REACH. INSTRUCTED PT TO USE CALL LIGHT FOR ALL THE NEEDS. BED IS LOW AND LOCKED. SIDE RAILS X2. BED ALARM IS ON. PT DENIES NEEDS AT THIS TIME.
--- NOTE | 2020-07-31 07:33 | NUR ---
GAVE BEDSIDE SHIFT REPORT TO ONCOMING NURSE. CALL LIGHT WITHIN REACH. PATIENT IN BED. PATIENT IN NO PAIN. HOURLY ROUNDING PERFORMED
--- NOTE | 2020-07-31 07:35 | NUR ---
PAGED DR. MARTIN REGARDING IF PT NEED ANY ANTICOAGULANTS ORDER.
[2020-07-31 07:43] LABS: BASOPHILS # (AUTO) 0.1 (0.0-0.1); BASOPHILS % 0.7 % (0.0-1.0); EOSINOPHILS # (AUTO) 0.3 (0.0-0.4); EOSINOPHILS % 4.7 % (0.0-6.0); HEMATOCRIT 32.2 % (34.2-44.1); HEMOGLOBIN 10.5 g/dL (12.0-16.0); LYMPHOCYTES # (AUTO) 1.2 (1.0-3.2); LYMPHOCYTES % 18.1 % (18.0-39.1); MEAN CORPUSCULAR HEMOGLOBIN 33.2 pg (28-32); MEAN CORPUSCULAR HGB CONC 32.6 g/dL (31-35); MEAN CORPUSCULAR VOLUME 101.9 fL (81-99); MONOCYTES # (AUTO) 0.5 (0.2-0.8); NEUTROPHILS # (AUTO) 4.7 (2.1-6.9); NEUTROPHILS % 69.1 % (38.7-80.0); PLATELET COUNT 202 x10e3/uL (140-360); RED BLOOD COUNT 3.16 x10e6/uL (3.6-5.1); RED CELL DISTRIBUTION WIDTH 15.3 % (11.7-14.4)
[2020-07-31] MEDS: ENOXAPARIN SOD INJ 40 MG/0.4 ML SYR SC SCH ×2 (08:03→20:50)
[2020-07-31 08:09] LABS: ALANINE AMINOTRANSFERASE 17 IU/L (0-55); ALBUMIN 2.6 g/dL (3.5-5.0); ALBUMIN/GLOBULIN RATIO 0.9 (0.8-2.0); ALKALINE PHOSPHATASE 90 IU/L (40-150); ANION GAP 12.5 mmol/L (8-16); BLOOD UREA NITROGEN 10 mg/dL (7-26); BUN/CREATININE RATIO 11 (6-25); CALCIUM 7.6 mg/dL (8.4-10.2); CARBON DIOXIDE 23 mmol/L (22-29); CHLORIDE 108 mmol/L (98-107); EST GLOMERULAR FILTRATION RATE > 60 ML/MIN (60-); GLUCOSE 92 mg/dL (74-118); MAGNESIUM 1.7 MG/DL (1.3-2.1); POTASSIUM 3.5 mmol/L (3.5-5.1); SODIUM 140 mmol/L (136-145)
[2020-07-31] MEDS: BALSAM PERU/CASTOR OIL 60 GM OINT...G. TP SCH (10:00)
--- NOTE | 2020-07-31 10:30 | NUR ---
PAGED DR. DOE REGARDING REHAB [facility]. LEFT MESSAGE WITH MICHELLE .
--- NOTE | 2020-07-31 16:44 | Consultation ---
DATE OF CONSULTATION: 07/31/2020 REASON FOR CONSULTATION: 1. Lower extremity cellulitis. 2. Lymphedema. 3. Morbid obesity. 4. Debilitation. HISTORY: A 69-year-old female, who had been over at [facility] with a history of falls, went to the hospital and ended up going to [facility]. She did not have particularly good time there, went home and then started having more problems with her legs and with signs of cellulitis and infection. She was transferred here, I am being asked for to evaluate for rehab needs. PAST MEDICAL HISTORY: Lymphedema, hypertension, obesity, possible chronic cellulitis in both lower extremities. PAST SURGICAL HISTORY: History of pilonidal cyst removal. ALLERGIES: SULFA AND COCONUT. HABITS: Nonsmoker, nondrinker. SOCIAL HISTORY: Lives in a one-story home, ambulatory, works on transplant team over at another facility. REVIEW OF SYSTEMS: Essentially negative except for the above findings. Rehab lafleur, she is moderate to maximum assist with supine to sit transfers. Impaired gait, although she could stand up with some max assist. LABORATORY DATA: White cell count of 6.7, hemoglobin 10.5, hematocrit 32.2, platelets of 202. Sodium is 140, potassium 3.5, BUN of 10, creatinine 0.9. INR is 1.02. PHYSICAL EXAMINATION: GENERAL: Awake, alert, very pleasant. Does tend to feel that the other facilities let her down. Other than that, she is able to have a more positive outlook. EYES: Gaze conjugate. ORAL: Tongue is midline. NECK: No JVD. LUNGS: Breathing well. ABDOMEN: Obese. EXTREMITIES: She has lymphedema. She has dressings to the both legs. Some erythema and cellulitis of lower extremities. Manual muscle testing hip and knee flexion and extension. She is actually a little bit slightly weak on the right compared to left, but both legs are pretty weak. Again, there is significant edema and cellulitis to lower extremities. IMPRESSION: 1. Debilitation secondary to lower extremity cellulitis. 2. Morbid obesity. PLAN: We will check with insurance to allow her to fill new patient rehab as before she was somewhat successful. This needs more antibiotics right now to get her back on her feet, work on mobility transfers and gait and ADLs. Thank you once again for allowing me to participate in the care of this very interesting patient. Javi Sotomayor DO RPL/RAVI /[id number]
[2020-07-31] MEDS: VANCOMYCIN 1GM/NS 250 ML 250 ML IV SCH (18:00)
--- NOTE | 2020-07-31 19:02 | NUR ---
RECEIVED BEDSIDE SHIFT REPORT FROM PREVIOUS NURSE. CALL LIGHT WITHIN REACH. PATIENT IN BED. PATIENT COMPLAINING THAT THE PURIWICK IS HURTING HER AND SHE WAS NOT CLEANING DURING THE DAY AND WANTS TO BE CLEANED. PATIENT IN DISTRESS
--- NOTE | 2020-07-31 19:10 | NUR ---
BEDSIDE SHIFT REPORT GIVEN TO THE COILER OPERATOR RN. PT DENIED FURTHER NEEDS.
--- NOTE | 2020-07-31 19:30 | NUR ---
CLEANED THE PATIENT AND APPLIED CREAM TO PERINEAL AND ABDOMINAL FOLD AREAS. SHE WAS IN NO PAIN OR DISTRESS. SHE WAS GRATEFUL TO BE CLEANED.
[2020-08-01] VITALS (7 sets, daily range): BP systolic 122–147; BP diastolic 59–77
[2020-08-01] MEDS: PIPER-TAZ 3.375 GM 50 ML IV SCH ×3 (06:00→18:03)
--- NOTE | 2020-08-01 07:26 | NUR ---
GAVE BEDSIDE SHIFT REPORT TO ONCOMING NURSE. CALL LIGHT WITHIN REACH. PATIENT IN BED. HOURLY ROUNDING PERFORMED.
[2020-08-01] MEDS: ENOXAPARIN SOD INJ 40 MG/0.4 ML SYR SC SCH ×2 (08:22→20:00)
--- NOTE | 2020-08-01 11:08 | NUR ---
PAGED DR. DOE REGARDING PT D/C PLAN.
--- NOTE | 2020-08-01 14:13 | NUR ---
CALL RECEIVED FROM ARTURO FROM [facility] REQUESTING CLINICAL FOR THE PT. INFORMED WE DID NOT HAVE AN ORDER TO INITIATE REHAB REFERRAL. SPOKE W DALIA, RN / BEDSIDE RN. HE PLACED CALL TO DR. MARTIN FOR REHAB ORDER. ORDER WAS GIVEN. CALL TO THE PT @ [phone]. PT WAS PROVIDED CHOICE. STATES SHE WANTS TO GO TO [facility]; THE REHAB IN [place]. CHOICE LETTER WAS SIGNED AND COPY TO CHART. MOT WAS INITIATED. REFERRAL WAS FAXED TO [facility] @ [phone] AND [phone]. [facility] WAS NOTIFIED.
[2020-08-01] MEDS: BALSAM PERU/CASTOR OIL 60 GM OINT...G. TP SCH (14:28)
[2020-08-01] MEDS: VANCOMYCIN 1GM/NS 250 ML 250 ML IV SCH (16:09)
--- NOTE | 2020-08-01 17:30 | NUR ---
CALL RECEIVED FROM [facility]. PT IS OKAY TO TRANSFER TO [facility] [id number] [facility] AFTER [address]. P[address] MARTIN AND REPORTED THE SAME.
--- NOTE | 2020-08-01 18:15 | NUR ---
[facility] TO TRANSFER PT TO [facility] PER DR. MARTIN AND CASE MANAGEMENT.
--- NOTE | 2020-08-01 18:16 | NUR ---
NO CHANGE IN MEDS PER DR. MARTIN WHEN TRANSFER THE PT.
--- NOTE | 2020-08-01 18:20 | NUR ---
PAGED [facility] TO GIVE THE TRANSFER REPORT. NURSE IS NOT AVAILABLE AT THIS TIME WILL CALL BACK PER RAHEEM PICKETT.
--- NOTE | 2020-08-01 18:50 | NUR ---
PAGED [facility] AND REPORT GIVEN TO JACEY PICKETT.
--- NOTE | 2020-08-01 19:00 | NUR ---
BEDSIDE SHIFT REPORT GIVEN TO THE FRATERNITY HOUSE COOK RN. PT DENIED FURTHER NEEDS. PT IS WAITING FOR TRANSFER TO [facility].
--- NOTE | 2020-08-01 19:23 | NUR ---
Received change of shift report from AM nurse. Walking rounds completed.
[2020-08-01] MEDS ORDERED: ONDANSETRON HCL 4 MG ORAL DISINTEGRATING TAB PO PRN (20:30)
[2020-08-02] VITALS: BP 140/75
[2020-08-02] MEDS: PIPER-TAZ 3.375 GM 50 ML IV SCH
--- NOTE | 2020-08-02 03:09 | NUR ---
Patient d/c to [facility]. Transported by EMS.
== END 2020-08-02 02:30 | DRG 602 ==
LOC: ER 12:25 → ERHOLD 13:48 → MED/SURG3 14:38
PROVIDERS: ADMIT Internal Medicine; ATTEND Internal Medicine
DX: L03.115 Cellulitis of right lower limb (principal); J96.01 Acute respiratory failure with hypoxia; N17.9 Acute kidney failure, unspecified; Z68.43 Body mass index [BMI] 50.0-59.9, adult; L03.116 Cellulitis of left lower limb; E66.01 Morbid (severe) obesity due to excess calories; Z88.2 Allergy status to sulfonamides; Z91.018 Allergy to other foods; Z91.81 History of falling; R53.81 Other malaise; I89.0 Lymphedema, not elsewhere classified; N18.3 Chronic kidney disease, stage 3 (moderate); D64.9 Anemia, unspecified; Z11.59 Encounter for screening for other viral diseases
CPT/HCPCS: 36415; 80048; 80053; 80202; 82550; 82553; 82948; 83735; 83880; 84484; 85025; 85610; 85730; 87040; 93970; 96361; 97139; 99284; J1650; J2270; J2405; J2543; J3370; J7030; J7050; U0002